=== PATIENT | male | born 1995 | race Two or more races ===

== ENCOUNTER 2016-12-03 22:31 | Emergency (ER) | payer OTHER, MEDICAID ==
[~2016-12-03] VITALS: Ht 182.9 cm; Wt 98.9 kg
[~2016-12-03 22:31] MED LIST: AMOXICILLIN500 MG ORAL; IBUPROFEN600 MG ORAL
[2016-12-03 22:52] VITALS: BP 118/73
[2016-12-03] MEDS ORDERED: IBUPROFEN600 MG ORAL (23:24)
[2016-12-03 23:38] VITALS: BP 118/69
--- NOTE | 2016-12-04 00:06 | Emergency Room Report ---
History of Present Illness General Chief Complaint: Pain Source: Patient Present Illness HPI 21-year-old male presents to ED complaining of right knee pain states that approximately 2 weeks ago he twisted his knee while at work. Feels pain when walking and twisting motions. Pain is 8/10, sharp, nonradiating. Denies any other injuries. He is able to walk without difficulty. No other aggravating relieving factors. Denies any other associated symptoms Allergies: Coded Allergies: No Known Allergies (Unverified , 05/11/15) Patient History Past Medical History: asthma Past Surgical History: none Pertinent Family History: none Social History: Denies: smoking, alcohol use, drug use Immunizations: UTD Reviewed Nursing Documentation: PMH: Agreed, PSxH: Agreed Nursing Documentation-PMH Hx Asthma: Yes Review of Systems All Other Systems: negative except mentioned in HPI Physical Exam Vital Signs Date Time Temp Pulse Resp B/P (MAP) Pulse Ox O2 Delivery O2 Flow Rate FiO2 12/03/16 22:40 98.2 89 16 118/73 98 Room Air Sp02 EP Interpretation: reviewed, normal General Appearance: no apparent distress, alert, GCS 15, non-toxic Head: normocephalic, atraumatic Eyes: bilateral eye normal inspection, bilateral eye PERRL ENT: hearing grossly normal, normal pharynx, no angioedema, normal voice Neck: full range of motion, supple/symm/no masses Respiratory: chest non-tender, lungs clear, normal breath sounds, speaking full sentences Cardiovascular #1: regular rate, rhythm, no edema Cardiovascular #2: 2+ carotid (R), 2+ carotid (L), 2+ radial (R), 2+ radial (L) , 2+ dorsalis pedis (R), 2+ dorsalis pedis (L) Gastrointestinal: normal bowel sounds, non tender, soft, non-distended, no guarding, no rebound Rectal: deferred Genitourinary: normal inspection, no CVA tenderness Musculoskeletal: back normal, gait/station normal, normal range of motion, non- tender Neurologic: alert, oriented x3, responsive, motor strength/tone normal, sensory intact, speech normal Psychiatric: judgement/insight normal, memory normal, mood/affect normal, no suicidal/homicidal ideation Reflexes: 3+ bicep (R), 3+ bicep (L), 3+ tricep (R), 3+ tricep (L), 3+ knee (R) , 3+ knee (L) Skin: normal color, no rash, warm/dry, well hydrated Lymphatic: no adenopathy Procedures Splinting Splinting : Consent: Verbal Pre-Made Type: MARIAA wrap - R knee Pre-Proc Neuro Vasc Exam: normal Post-Proc Neuro Vasc Exam: normal Patient Tolerated: Well Complications: None Medical Decision Making Diagnostic Impression: Primary Impression: Knee pain Qualified Codes: M25.561 - Pain in right knee ER Course Hospital Course 21-year-old M presents to ED complaining of R knee pain s/p twisting injury Differential diagnoses include: Fracture, dislocation, sprain, contusion Clinical course Patient placed on stretcher. After initial history and physical, I ordered pain medications and Xrays of R knee Xrays prelim read shows no acute fracture/dislocation. placed in mariaa wrap Diagnosis - knee pain Stable and discharged to home with prescription for Motrin. apply ice, keep elevated. weight bear as tolerated. Followup with PMD. Return to ED if symptoms recur or worsen Other X-Ray Diagnostic Results Other X-Ray Diagnostic Results : X-Ray ordered: R knee # of Views/Limited Vs Complete: 3 View Indication: Pain EP Interpretation: Yes Interpretation: no dislocation, no soft tissue swelling, no fractures Impression: No acute disease Electronically Signed by: Electronically signed by Homer Mosquera MD Last Vital Signs Date Time Temp Pulse Resp B/P (MAP) Pulse Ox O2 Delivery O2 Flow Rate FiO2 12/03/16 23:38 78 16 118/69 99 Room Air 12/03/16 22:52 98.2 Status: improved Disposition: HOME, SELF-CARE Condition: Stable Scripts Ibuprofen* (MOTRIN*) 600 Mg Tablet 600 MG ORAL Q8H Y for For Pain, #30 TAB 0 Refills Prov: HOMER MOSQUERA M.D. 12/03/16 Departure Forms: Return to Work Return to Work Date: Dec 04, 2016 Work Restrictions: No Heavy Lifting Patient Instructions: KNEE PAIN, Uncertain Cause HOMER MOSQUERA M.D. Dec 04, 2016 00:06
--- NOTE | 2016-12-04 09:06 | Diagnostic Imaging Report ---
Indication: PAIN Comparison: none Findings: 3 views of the right knee show no acute fractures or dislocations. Bony mineralization is normal. No bony destructive lesions are identified. There is no suprapatellar effusion. Soft tissues are unremarkable. Impression: Normal right knee series
== END 2016-12-03 23:40 | disposition home or self-care (01) ==
LOC: EMR 22:57
DX: M25.561 Pain in right knee (principal); J45.909 Unspecified asthma, uncomplicated
CPT/HCPCS: 99283

== ENCOUNTER 2017-01-18 15:21 | Emergency (ER) | payer OTHER, MEDICAID ==
[~2017-01-18] VITALS: Ht 180.3 cm; Wt 98.9 kg
[2017-01-18 15:40] VITALS: BP 137/82
[2017-01-18] MEDS ORDERED: Ketorolac 30mg Inj IV ONE (15:45)
[2017-01-18] MEDS ORDERED: Morphine Sulfate 4mg/ml Inj IVP ONE (15:45)
--- NOTE | 2017-01-18 15:59 | Emergency Room Report ---
History of Present Illness General Chief Complaint: Abdominal Pain Source: Patient Present Illness HPI 21-year-old male presents ED complaining of abdominal pain. Started approximately 2 hours prior to arrival. Started at rest. Sudden onset. Started right after eating. Right upper quadrant, 10 out of 10, nonradiating. Denies fevers or chills. Denies chest pain shortness of breath. Notes nausea, denies vomiting. Denies any prior episodes of pain. No other aggravating relieving factors. Denies any other associated symptoms Allergies: Coded Allergies: No Known Allergies (Unverified , 05/11/15) Patient History Past Medical History: asthma, GERD Past Surgical History: none Pertinent Family History: none Social History: Denies: smoking, alcohol use, drug use Reviewed Nursing Documentation: PMH: Agreed, PSxH: Agreed Nursing Documentation-PMH Hx Asthma: Yes Hx Gastrointestinal Problems: Yes - Gastritis Review of Systems All Other Systems: negative except mentioned in HPI Physical Exam Vital Signs Date Time Temp Pulse Resp B/P (MAP) Pulse Ox O2 Delivery O2 Flow Rate FiO2 01/18/17 15:24 97.7 118 18 142/80 97 Room Air Sp02 EP Interpretation: reviewed, normal General Appearance: alert, GCS 15, non-toxic, mild distress Head: normocephalic, atraumatic Eyes: bilateral eye normal inspection, bilateral eye PERRL ENT: hearing grossly normal, normal pharynx, no angioedema, normal voice Neck: full range of motion, supple/symm/no masses Respiratory: chest non-tender, lungs clear, normal breath sounds, speaking full sentences Cardiovascular #1: regular rate, rhythm, no edema Cardiovascular #2: 2+ carotid (R), 2+ carotid (L), 2+ radial (R), 2+ radial (L) , 2+ dorsalis pedis (R), 2+ dorsalis pedis (L) Gastrointestinal: normal bowel sounds, soft, non-distended, no guarding, no rebound, tenderness - RUQ Rectal: deferred Genitourinary: normal inspection, no CVA tenderness Musculoskeletal: back normal, gait/station normal, normal range of motion, non- tender Neurologic: alert, oriented x3, responsive, motor strength/tone normal, sensory intact, speech normal Psychiatric: judgement/insight normal, memory normal, mood/affect normal, no suicidal/homicidal ideation Reflexes: 3+ bicep (R), 3+ bicep (L), 3+ tricep (R), 3+ tricep (L), 3+ knee (R) , 3+ knee (L) Skin: normal color, no rash, warm/dry, well hydrated Lymphatic: no adenopathy Medical Decision Making Diagnostic Impression: Primary Impression: Abdominal pain Qualified Codes: R10.11 - Right upper quadrant pain ER Course Hospital Course 21-year-old M presents to ED with RUQ abdominal pain Differential diagnosis includes-appendicitis, cholecystitis, small bowel obstruction, gastritis, Clinical course Patient placed on stretcher. After initial history and physical I ordered labs , IV fluids, pain medications and US Labs - no leukocytosis, electrolytes ok, LFTs normal ABD US - ? echogenicty suggesting fatty liver, no other acute process CT scan shows fatty liver, mesenteric adenitis. Upon reassessment, patient states pain has improved. Given a labs, patient. Nontoxic and no acute abdomen I believe patient can be safely discharged to home. Discussed the findings and mesenteric adenitis; can be inflammatory reaction versus unspecified infection. Patient prefers to be discharged. We will prescribe antibiotics and pain medications. Patient instructed to return if symptoms do not improve or worsen Given by mouth Flagyl in ED I feel this is a highly complex case requiring extensive working including EKG/ Rhythm strip, Xray/CT/US, Blood/urine lab work, repeat exams while in ED, and administration of strong opiates/narcotics for pain control, admission to hospital or close patient follow up. Diagnosis - abdominal pain Stable and discharged to home with Rx Tramadol, Flagyl. Followup with PMD. Return to ED if symptoms recur or worsen Labs Test 01/18/17 15:45 White Blood Count 8.7 K/UL (4.8-10.8) Red Blood Count 5.15 M/UL (4.70-6.10) Hemoglobin 15.6 G/DL (14.2-18.0) Hematocrit 46.8 % (42.0-52.0) Mean Corpuscular Volume 91 FL (80-99) Mean Corpuscular Hemoglobin 30.2 PG (27.0-31.0) Mean Corpuscular Hemoglobin Concent 33.2 G/DL (32.0-36.0) Red Cell Distribution Width 10.5 % (11.6-14.8) Platelet Count 244 K/UL (150-450) Mean Platelet Volume 7.7 FL (6.5-10.1) Neutrophils (%) (Auto) 59.9 % (45.0-75.0) Lymphocytes (%) (Auto) 32.6 % (20.0-45.0) Monocytes (%) (Auto) 2.9 % (1.0-10.0) Eosinophils (%) (Auto) 3.0 % (0.0-3.0) Basophils (%) (Auto) 1.5 % (0.0-2.0) Urine Color Pale yellow Urine Appearance Clear Urine pH 8 (4.5-8.0) Urine Specific [place] 1.015 (1.005-1.035) Urine Protein Negative (NEGATIVE) Urine Glucose (UA) Negative (NEGATIVE) Urine Ketones Negative (NEGATIVE) Urine Occult Blood Negative (NEGATIVE) Urine Nitrite Negative (NEGATIVE) Urine Bilirubin Negative (NEGATIVE) Urine Urobilinogen Normal MG/DL (0.0-1.0) Urine Leukocyte Esterase Negative (NEGATIVE) Sodium Level 140 MMOL/L (136-145) Potassium Level 4.4 MMOL/L (3.5-5.1) Chloride Level 103 MMOL/L (98-107) Carbon Dioxide Level 29 MMOL/L (21-32) Anion Gap 8 mmol/L (5-15) Blood Urea Nitrogen 17 mg/dL (7-18) Creatinine 1.0 MG/DL (0.55-1.30) Estimat Glomerular Filtration Rate > 60 mL/min (>60) Glucose Level 93 MG/DL (74-106) Calcium Level 9.5 MG/DL (8.5-10.1) Total Bilirubin 0.2 MG/DL (0.2-1.0) Aspartate Amino Transf (AST/SGOT) 39 U/L (15-37) Alanine Aminotransferase (ALT/SGPT) 27 U/L (12-78) Alkaline Phosphatase 60 U/L (46-116) Total Protein 8.5 G/DL (6.4-8.2) Albumin 4.4 G/DL (3.4-5.0) Globulin 4.1 g/dL Albumin/Globulin Ratio 1.1 (1.0-2.7) Lipase 169 U/L (73-393) CT/MRI/US Diagnostic Results CT/MRI/US Diagnostic Results #1: Imaging Test Ordered: Abd US Impression hepatic echogenicity ? fatty change CT/MRI/US Diagnostic Results #2: Imaging Test Ordered: CT A/P Impression fatty liver. mesenteric adenitis. no e/o cholecystitis. no e/o appendicitis Last Vital Signs Date Time Temp Pulse Resp B/P (MAP) Pulse Ox O2 Delivery O2 Flow Rate FiO2 01/18/17 15:24 97.7 118 18 142/80 97 Room Air Status: improved Disposition: HOME, SELF-CARE Condition: Stable Scripts Metronidazole* (FLAGYL*) 500 Mg Tablet 500 MG ORAL THREE TIMES A DAY, #21 TAB Prov: SARAH ANDERSON M.D. 01/18/17 Tramadol Hcl* (ULTRAM*) 50 Mg Tablet 50 MG ORAL Q6H Y for For Pain, #30 TAB 0 Refills Prov: SARAH ANDERSON M.D. 01/18/17 SARAH ANDERSON M.D. Jan 18, 2017 15:59
[2017-01-18 16:08] LABS: APPEARANCE,URINE CLEAR; BASOPHILS % (AUTO) 1.5 % (0.0-2.0); KETONES,URINE NEGATIVE (NEGATIVE); LEUKOCYTE ESTERASE ,URINE NEGATIVE (NEGATIVE); LYMPHOCYTES % (AUTO) 32.6 % (20.0-45.0); MEAN CORPUSCULAR HEMOGLOBIN 30.2 PG (27.0-31.0); MEAN CORPUSCULAR HGB CONC 33.2 G/DL (32.0-36.0); MEAN CORPUSCULAR VOLUME 91 FL (80-99); MEAN PLATELET VOLUME 7.7 FL (6.5-10.1); MONOCYTES % (AUTO) 2.9 % (1.0-10.0); NEUTROPHILS % (AUTO) 59.9 % (45.0-75.0); NITRITE,URINE NEGATIVE (NEGATIVE); PH,URINE 8 (4.5-8.0); PLATELET COUNT 244 K/UL (150-450); PROTEIN,URINE NEGATIVE (NEGATIVE); RED BLOOD COUNT 5.15 M/UL (4.70-6.10); RED CELL DISTRIBUTION WIDTH 10.5 % (11.6-14.8); UROBILINOGEN,URINE NORMAL MG/DL (0.0-1.0); WHITE BLOOD COUNT 8.7 K/UL (4.8-10.8)
[2017-01-18 16:16] LABS: ANION GAP 8 mmol/L (5-15); CALCIUM 9.5 MG/DL (8.5-10.1); CARBON DIOXIDE 29 MMOL/L (21-32); CHLORIDE 103 MMOL/L (98-107); GLOMERULAR FILTRATION RATE > 60 mL/min (>60); POTASSIUM 4.4 MMOL/L (3.5-5.1); SODIUM 140 MMOL/L (136-145)
[2017-01-18 16:22] LABS: ALANINE AMINOTRANSFERASE 27 U/L (12-78); ALBUMIN/GLOBULIN RATIO 1.1 (1.0-2.7); ASPARTATE AMINO TRANSFERASE 39 U/L (15-37); LIPASE 169 U/L (73-393); TOTAL PROTEIN 8.5 G/DL (6.4-8.2)
--- NOTE | 2017-01-18 16:43 | Diagnostic Imaging Report ---
Indication: Right upper quadrant pain, nausea Technique: Nicole-scale and duplex images of the upper abdomen were obtained Comparison: None Findings: Gallbladder is unremarkable, without stones, wall thickening, nor pericholecystic fluid. Sonographic Jones's sign is negative. Common bile duct measures 4 mm in diameter. No intrahepatic biliary ductal dilatation. Liver is somewhat enlarged, demonstrates equivocally slightly increased echogenicity. Subtle hypoechoic area is seen in the posterior right hepatic lobe, measures 4.1 x 2.5 x 3.3 cm. Portal vein and hepatic veins are patent. Pancreas is unremarkable. Spleen is unremarkable. Left kidney measures 11.8 cm in length. Right kidney measures 11.8 cm length. Both kidneys demonstrate normal echogenicity. There is no hydronephrosis. No focal abnormality . Non-aneurysmal abdominal aorta . Impression: Equivocally slightly increased hepatic echogenicity, if real consistent with hepatocellular disease, could represent fatty change Subtle hypoechoic area in the posterior right hepatic lobe as described. Could represent area of focal sparing, but mass or inflammatory lesion not excludable. Consider further evaluation with contrast CT or MRI Negative for gallstones or dilated ducts Findings discussed by phone with Dr. Mosquera in the emergency room at the time of interpretation
[2017-01-18] MEDS ORDERED: TRAMADOL HCL50 MG ORAL (18:34)
[2017-01-18] MEDS ORDERED: METRONIDAZOLE500 MG ORAL (18:34)
[2017-01-18] MEDS ORDERED: metroNIDAZOLE 500mg tab ORAL ONE (18:45)
[2017-01-18 18:58] VITALS: BP 133/77
--- NOTE | 2017-01-19 08:42 | Diagnostic Imaging Report ---
Clinical Indication: Abdominal pain Technique: No oral contrast utilized, per emergency room physician request IV administration nonionic contrast. Venous phase spiral acquisition obtained through the abdomen and pelvis. Multiplanar reconstructions were generated. Total dose length product 979 mGycm. CTDIvol(s) 17 mGy. Dose reduction achieved using automated exposure control Comparison: Abdomen ultrasound 01/18/2017. There are no comparison CTs Findings: The appendix is normal. No evidence of diverticulosis or diverticulitis. The distal esophagus, stomach, duodenum are unremarkable. Small bowel loops are somewhat prominent and fluid-filled distally, and the distalmost ileum demonstrates small bowel feces. No free or loculated intraperitoneal air or fluid is evident. The liver is mildly enlarged and slightly hypoattenuating.. Very subtle slight hyperattenuation in the posterior right lobe probably corresponds to the hypoechoic lesion described on recent ultrasound, most likely an area of focal sparing within an otherwise fatty liver. No other focal abnormality. Gallbladder, bile ducts, pancreas spleen, adrenals, kidneys are all unremarkable. There are slightly prominent right lower quadrant mesenteric lymph nodes. No retroperitoneal mass or adenopathy. No pelvic mass or adenopathy. The included lung bases are clear. The bones are unremarkable Impression: Mild hepatic steatosis Very subtle slight hyperattenuation in the posterior right hepatic lobe, location corresponding to abnormality described on recent ultrasound, probably an area of focal sparing within the fatty liver Fluid-filled small bowel distally with some distal small bowel feces may indicate stasis of contents and therefore very mild ileus. No evidence of bowel obstruction Slightly prominent right lower quadrant lymph nodes, mesenteric lymphadenitis the possibility This agrees with the preliminary interpretation provided overnight by [facility]. The CT scanner at [facility] is accredited by the [employer] and the scans are performed using protocols designed to limit radiation exposure to as low as reasonably achievable to attain images of sufficient resolution adequate for diagnostic evaluation.
== END 2017-01-18 19:00 | disposition home or self-care (01) ==
LOC: EMR 15:55
DX: R10.11 Right upper quadrant pain (principal); J45.909 Unspecified asthma, uncomplicated; K21.9 Gastro-esophageal reflux disease without esophagitis; Z87.19 Personal history of other diseases of the digestive system
CPT/HCPCS: 36415; 74177; 76700; 80053; 81003; 83690; 85025; 96361; 96374; 96375; 99284; J1885; J2270; J2405; Q9967

== ENCOUNTER 2017-06-25 14:15 | Emergency (ER) | payer MEDICAID, OTHER ==
[~2017-06-25] VITALS: Ht 182.9 cm; Wt 99.8 kg
[~2017-06-25 14:15] MED LIST changes: +METRONIDAZOLE500 MG ORAL; +TRAMADOL HCL50 MG ORAL
[2017-06-25] MEDS ORDERED: Metoclopramide 10mg/2ml Inj IVP ONE (14:30)
[2017-06-25] MEDS ORDERED: Ketorolac 30mg Inj IV ONE (14:30)
[2017-06-25] MEDS ORDERED: DiphenhydrAMINE 50mg/ml Inj IVP ONE (14:30)
--- NOTE | 2017-06-25 14:36 | Emergency Room Report ---
History of Present Illness General Chief Complaint: General Complaint Source: Patient Present Illness HPI 21-year-old male with a history of headaches p/w BARR for one day Patient describes BARR as gradual in onset, occurred while he was at work, throbbing in nature, localized to bilateral temples, also radiating down to her shoulders and his hands, non-radiating, constant, 6 out of 10 in severity. + photophobia, phonophobia. Patient took an extra strength Tylenol without any relief Patient has a history of headaches and states this BARR feels similar to previous episodes. States that the last time he had a headache this bad was less than 6 months ago. States that he has told his doctor about his headaches in the past , but he has not seen a neurology specialist Denies fever, chills, blurry vision Allergies: Coded Allergies: No Known Allergies (Unverified , 05/11/15) Patient History Past Medical History: see triage record Past Surgical History: none Pertinent Family History: none Reviewed Nursing Documentation: PMH: Agreed; PSxH: Agreed Nursing Documentation-PMH Hx Asthma: Yes Hx Gastrointestinal Problems: Yes - Gastritis Review of Systems All Other Systems: negative except mentioned in HPI Physical Exam Vital Signs Date Time Temp Pulse Resp B/P (MAP) Pulse Ox O2 Delivery O2 Flow Rate FiO2 06/25/17 14:18 97.6 108 20 142/88 99 97.5 Sp02 EP Interpretation: reviewed, normal General Appearance: alert, GCS 15, non-toxic, mild distress Head: normocephalic, atraumatic Eyes: bilateral eye normal inspection, bilateral eye PERRL, bilateral eye EOMI ENT: normal ENT inspection, normal pharynx, normal voice, moist mucus membranes Neck: normal inspection, full range of motion, supple, no meningismus, no bony tend Respiratory: normal inspection, lungs clear, normal breath sounds, no respiratory distress, no retraction, no wheezing, speaking full sentences, chest symmetrical Cardiovascular #1: normal inspection, regular rate, rhythm, normal capillary refill Cardiovascular #2: 2+ radial (R), 2+ radial (L) Gastrointestinal: normal inspection, non tender, soft, non-distended, no guarding Musculoskeletal: back normal, normal range of motion, other - Bilateral deltoid /shoulder muscular tenderness, full range of motion all extremities Neurologic: normal inspection, alert, oriented x3, responsive, uc architect III-XII nml as tested, motor strength/tone normal, sensory intact, normal gait, speech normal Psychiatric: normal inspection, judgement/insight normal, memory normal Skin: normal inspection, normal color, no rash, warm/dry, well hydrated, normal turgor Medical Decision Making Diagnostic Impression: Primary Impression: Headache ER Course 21-year-old male p/w BARR x 1 days. DDX: Primary BARR such as migraine, tension BARR, cluster. vs. dehydration Other serious diagnoses on differential such as intracranial bleed/sah, meningitis/encephalitis, tumor, carotid dissection, however patients H&P is more consistent with benign etiology at this time. There are no neurological signs/symptoms/findings on physical exam and patient appears nontoxic and is ambulatory around the emergency room Plan: Labs, Pain control with reglan/benadryl/toradol, IVF ER course: Patient feels much better with meds. Patient continues to appear nontoxic, aox3, no neurologic symptoms. Disposition: Patient will be discharged to home. Patient instructed to follow up with primary care doctor within 5 days. Patient also instructed to follow up with a neurologist within 1 week. Strict return precautions discussed with patient such as severe/worsening headache, nausea, vomiting, fever chills, neck pain. Patient verbalized understanding. Please note that this Emergency Department Report was dictated using [employer] technology software, occasionally this can lead to erroneous entry secondary to interpretation by the dictation equipment. EKG Diagnostic Results EP Interpretation: Yes Rate: normal Rhythm: NSR ST Segments: No acute changes ASA given to patient: No Rhythm Strip EP Interpretation: Yes Rate: 70 Rhythm: NSR, no PVCs, no ectopy Laboratory Tests Test 06/25/17 14:44 White Blood Count 8.0 K/UL (4.8-10.8) Red Blood Count 5.30 M/UL (4.70-6.10) Hemoglobin 16.4 G/DL (14.2-18.0) Hematocrit 46.9 % (42.0-52.0) Mean Corpuscular Volume 88 FL (80-99) Mean Corpuscular Hemoglobin 30.9 PG (27.0-31.0) Mean Corpuscular Hemoglobin Concent 34.9 G/DL (32.0-36.0) Red Cell Distribution Width 10.4 % (11.6-14.8) L Platelet Count 354 K/UL (150-450) Mean Platelet Volume 7.0 FL (6.5-10.1) Neutrophils (%) (Auto) 67.9 % (45.0-75.0) Lymphocytes (%) (Auto) 25.5 % (20.0-45.0) Monocytes (%) (Auto) 4.3 % (1.0-10.0) Eosinophils (%) (Auto) 1.2 % (0.0-3.0) Basophils (%) (Auto) 1.0 % (0.0-2.0) Prothrombin Time 11.3 SEC (9.30-11.50) Prothrombin Time INR 1.1 (0.9-1.1) PTT 36 SEC (23-33) H Urine Color Pale yellow Urine Appearance Clear Urine pH 7 (4.5-8.0) Urine Specific [place] 1.000 (1.005-1.035) Urine Protein Negative (NEGATIVE) Urine Glucose (UA) Negative (NEGATIVE) Urine Ketones Negative (NEGATIVE) Urine Occult Blood Negative (NEGATIVE) Urine Nitrite Negative (NEGATIVE) Urine Bilirubin Negative (NEGATIVE) Urine Urobilinogen Normal MG/DL (0.0-1.0) Urine Leukocyte Esterase Negative (NEGATIVE) Sodium Level 141 MMOL/L (136-145) Potassium Level 3.7 MMOL/L (3.5-5.1) Chloride Level 102 MMOL/L (98-107) Carbon Dioxide Level 28 MMOL/L (21-32) Anion Gap 11 mmol/L (5-15) Blood Urea Nitrogen 12 mg/dL (7-18) Creatinine 0.9 MG/DL (0.55-1.30) Estimate Glomerular Filtration Rate > 60 mL/min (>60) Glucose Level 99 MG/DL (74-106) Calcium Level 10.3 MG/DL (8.5-10.1) H Total Bilirubin 0.4 MG/DL (0.2-1.0) Aspartate Amino Transferase (AST) 28 U/L (15-37) Alanine Aminotransferase (ALT) 76 U/L (12-78) Alkaline Phosphatase 72 U/L (46-116) Total Creatine Kinase 203 U/L (26-308) Troponin I 0.000 ng/mL (0.000-0.056) Total Protein 8.8 G/DL (6.4-8.2) H Albumin 4.7 G/DL (3.4-5.0) Globulin 4.1 g/dL Albumin/Globulin Ratio 1.1 (1.0-2.7) Urine Opiates Screen Negative (NEGATIVE) Urine Barbiturates Screen Negative (NEGATIVE) Phencyclidine (PCP) Screen Negative (NEGATIVE) Urine Amphetamines Screen Negative (NEGATIVE) Urine Benzodiazepines Screen Negative (NEGATIVE) Urine Cocaine Screen Negative (NEGATIVE) Urine Marijuana (THC) Screen Negative (NEGATIVE) Last Vital Signs Date Time Temp Pulse Resp B/P (MAP) Pulse Ox O2 Delivery O2 Flow Rate FiO2 06/25/17 14:18 97.6 108 20 142/88 99 97.5 Disposition: HOME, SELF-CARE Condition: Improved Sami Meadows M.D. Jun 25, 2017 14:36
[2017-06-25 14:56] LABS: EOSINOPHILS % (AUTO) 1.2 % (0.0-3.0); HEMATOCRIT 46.9 % (42.0-52.0); HEMOGLOBIN 16.4 G/DL (14.2-18.0); LYMPHOCYTES % (AUTO) 25.5 % (20.0-45.0); MEAN CORPUSCULAR VOLUME 88 FL (80-99); MONOCYTES % (AUTO) 4.3 % (1.0-10.0); NEUTROPHILS % (AUTO) 67.9 % (45.0-75.0); PLATELET COUNT 354 K/UL (150-450); RED CELL DISTRIBUTION WIDTH 10.4 % (11.6-14.8)
[2017-06-25 14:57] LABS: APPEARANCE,URINE CLEAR; BILIRUBIN, URINE NEGATIVE (NEGATIVE); COLOR,URINE PALE YELLOW; GLUCOSE, URINE (UA) NEGATIVE (NEGATIVE); KETONES,URINE NEGATIVE (NEGATIVE); LEUKOCYTE ESTERASE ,URINE NEGATIVE (NEGATIVE); NITRITE,URINE NEGATIVE (NEGATIVE); PH,URINE 7 (4.5-8.0); PROTEIN,URINE NEGATIVE (NEGATIVE); UROBILINOGEN,URINE NORMAL MG/DL (0.0-1.0)
[2017-06-25 15:08] LABS: ANION GAP 11 mmol/L (5-15); BLOOD UREA NITROGEN 12 mg/dL (7-18); CALCIUM 10.3 MG/DL (8.5-10.1); CARBON DIOXIDE 28 MMOL/L (21-32); CHLORIDE 102 MMOL/L (98-107); CREATININE 0.9 MG/DL (0.55-1.30); INR 1.1 (0.9-1.1); POTASSIUM 3.7 MMOL/L (3.5-5.1); SODIUM 141 MMOL/L (136-145)
[2017-06-25 15:13] LABS: ALANINE AMINOTRANSFERASE 76 U/L (12-78); ALBUMIN 4.7 G/DL (3.4-5.0); ALBUMIN/GLOBULIN RATIO 1.1 (1.0-2.7); ALKALINE PHOSPHATASE 72 U/L (46-116); ASPARTATE AMINO TRANSFERASE 28 U/L (15-37); BILIRUBIN,TOTAL 0.4 MG/DL (0.2-1.0); CREATINE KINASE 203 U/L (26-308)
[2017-06-25 15:25] VITALS: BP 126/46
[2017-06-25 15:39] VITALS: BP 126/46
--- NOTE | 2017-06-26 10:51 | Diagnostic Imaging Report ---
Indication: Chest pain Technique: One view of the chest Comparison: Findings: Lungs and pleural spaces are clear. Heart size is normal Impression: No acute process
== END 2017-06-25 15:40 | disposition home or self-care (01) ==
LOC: EMR 15:00
DX: R51 Headache (principal); J45.909 Unspecified asthma, uncomplicated
CPT/HCPCS: 36415; 71045; 80053; 80307; 81003; 82550; 84484; 85025; 85610; 85730; 93005; 96374; 96375; 99283; J1200; J1885; J2765

== ENCOUNTER 2018-07-11 23:26 | Emergency (ER) | payer MEDICAID, OTHER ==
[~2018-07-11] VITALS: Ht 180.3 cm; Wt 106.6 kg
[2018-07-11] MEDS ORDERED: ALBUTEROL2.5 MG/3 M INH (23:35)
--- NOTE | 2018-07-11 23:38 | NUR ---
ED Nurse Note: Patient presents with complaints of migraine x 2 days with additional complaint of photosensitivity.
--- NOTE | 2018-07-11 23:48 | NUR ---
ED Nurse Note: Patient has complaints of back and stomach pain. Patient also vomitted twice today.
[2018-07-11 23:49] VITALS: BP 150/92
--- NOTE | 2018-07-12 00:50 | NUR ---
ED Nurse Note: ERMD at bedside.
[2018-07-12 00:53] VITALS: BP 118/76
[2018-07-12] MEDS ORDERED: Metoclopramide 10mg/2ml Inj IVP ONE (01:00)
[2018-07-12] MEDS ORDERED: DiphenhydrAMINE 50mg/ml Inj IVP ONE (01:00)
[2018-07-12] MEDS ORDERED: Ketorolac 30mg Inj IV ONE (01:00)
[2018-07-12 01:08] LABS: BASOPHILS % (AUTO) 1.4 % (0.0-2.0); EOSINOPHILS % (AUTO) 5.9 % (0.0-3.0); HEMATOCRIT 41.8 % (42.0-52.0); HEMOGLOBIN 14.7 G/DL (14.2-18.0); LYMPHOCYTES % (AUTO) 36.6 % (20.0-45.0); MEAN CORPUSCULAR VOLUME 87 FL (80-99); MONOCYTES % (AUTO) 7.1 % (1.0-10.0); PLATELET COUNT 340 K/UL (150-450); RED BLOOD COUNT 4.79 M/UL (4.70-6.10); RED CELL DISTRIBUTION WIDTH 10.8 % (11.6-14.8); WHITE BLOOD COUNT 8.6 K/UL (4.8-10.8)
[2018-07-12 01:15] LABS: ANION GAP 8 mmol/L (5-15); BLOOD UREA NITROGEN 13 mg/dL (7-18); CALCIUM 9.2 MG/DL (8.5-10.1); CARBON DIOXIDE 29 MMOL/L (21-32); CHLORIDE 104 MMOL/L (98-107); POTASSIUM 3.9 MMOL/L (3.5-5.1); SODIUM 141 MMOL/L (136-145)
[2018-07-12 01:20] LABS: ALANINE AMINOTRANSFERASE 47 U/L (12-78); ALBUMIN/GLOBULIN RATIO 1.1 (1.0-2.7); ALKALINE PHOSPHATASE 63 U/L (46-116); ASPARTATE AMINO TRANSFERASE 24 U/L (15-37); BILIRUBIN,TOTAL 0.3 MG/DL (0.2-1.0)
--- NOTE | 2018-07-12 01:37 | NUR ---
ED Nurse Note: Urine sent to lab
[2018-07-12 01:42] LABS: APPEARANCE,URINE CLEAR; BILIRUBIN, URINE NEGATIVE (NEGATIVE); COLOR,URINE PALE YELLOW; GLUCOSE, URINE (UA) NEGATIVE (NEGATIVE); KETONES,URINE NEGATIVE (NEGATIVE); LEUKOCYTE ESTERASE ,URINE 1+ (NEGATIVE); NITRITE,URINE NEGATIVE (NEGATIVE); PH,URINE 8 (4.5-8.0); PROTEIN,URINE NEGATIVE (NEGATIVE); UROBILINOGEN,URINE NORMAL MG/DL (0.0-1.0)
--- NOTE | 2018-07-12 01:50 | NUR ---
ED Nurse Note: Patient is sleeping comfortably,easily arousable, reports no pain at this time.
--- NOTE | 2018-07-12 02:15 | NUR ---
ED Nurse Note: Patient headed down for CT of the head.
--- NOTE | 2018-07-12 02:34 | NUR ---
ED Nurse Note: Patient returned from CT
--- NOTE | 2018-07-12 02:45 | Emergency Room Report ---
History of Present Illness General Chief Complaint: Headache Source: Patient Present Illness HPI Patient is a 22-year-old male who presented after increased headache and nausea and vomiting. Patient gradual onset of symptoms over the past few days. He reportedly had prior history of similar type headaches in the past but not as severe. Patient denies any recent trauma. He reports having increased generalized headache. He denies any diarrhea but reports having multiple episodes of nausea and vomiting.Patient reportedly had been having some fever at home. Allergies: Coded Allergies: No Known Allergies (Unverified , 05/11/15) Patient History Reviewed Nursing Documentation: PMH: Agreed; PSxH: Agreed Nursing Documentation-PM Past Medical History: No History, Except For Hx Asthma: Yes Hx Gastrointestinal Problems: Yes - Gastritis Review of Systems All Other Systems: negative except mentioned in HPI Physical Exam Vital Signs Date Time Temp Pulse Resp B/P (MAP) Pulse Ox O2 Delivery O2 Flow Rate FiO2 07/11/18 23:31 98.8 97 15 98 Room Air 07/11/18 23:49 150/92 Sp02 EP Interpretation: reviewed, normal General Appearance: normal inspection, well appearing, no apparent distress, alert, GCS 15 Head: atraumatic ENT: normal ENT inspection, hearing grossly normal, normal voice Neck: normal inspection, full range of motion, supple, no bony tend Respiratory: normal inspection, lungs clear, normal breath sounds, no respiratory distress, no retraction, no wheezing Cardiovascular #1: regular rate, rhythm, no edema Gastrointestinal: normal inspection, normal bowel sounds, non tender, soft, no guarding, no hernia Genitourinary: no CVA tenderness Musculoskeletal: normal inspection, back normal, normal range of motion Neurologic: normal inspection, alert, oriented x3, responsive, escrow manager III-XII nml as tested, speech normal Psychiatric: normal inspection, judgement/insight normal, mood/affect normal Skin: normal inspection, normal color, no rash Medical Decision Making Diagnostic Impression: Primary Impression: Headache ER Course . Patient presented for headache. Differential diagnoses included but was not limited to skull fracture, subarachnoid hemorrhage, meningitis, aneurysm, mass lesion, intracranial hemorrhage. Because of complexity of patient's case laboratory testing and imaging studies were ordered. Patient was given medications for his headache. He was started on IV fluids. CT of the head was ordered due to patient's worsening headache. Patient's laboratory testing was unremarkable. Patient was noted to have improvement in his headache after medicating.CT head read by radiology showed no evidence of acute hemorrhage hydrocephalus or mass-effect. Sinuses were clear. Patient was given return precautions. He was advised to remain off work for 2 days. He is advised to return if he had any worsening of condition or other concerns. Labs Test 07/12/18 00:30 07/12/18 01:35 White Blood Count 8.6 K/UL (4.8-10.8) Red Blood Count 4.79 M/UL (4.70-6.10) Hemoglobin 14.7 G/DL (14.2-18.0) Hematocrit 41.8 % (42.0-52.0) Mean Corpuscular Volume 87 FL (80-99) Mean Corpuscular Hemoglobin 30.7 PG (27.0-31.0) Mean Corpuscular Hemoglobin Concent 35.1 G/DL (32.0-36.0) Red Cell Distribution Width 10.8 % (11.6-14.8) Platelet Count 340 K/UL (150-450) Mean Platelet Volume 6.9 FL (6.5-10.1) Neutrophils (%) (Auto) 49.0 % (45.0-75.0) Lymphocytes (%) (Auto) 36.6 % (20.0-45.0) Monocytes (%) (Auto) 7.1 % (1.0-10.0) Eosinophils (%) (Auto) 5.9 % (0.0-3.0) Basophils (%) (Auto) 1.4 % (0.0-2.0) Sodium Level 141 MMOL/L (136-145) Potassium Level 3.9 MMOL/L (3.5-5.1) Chloride Level 104 MMOL/L (98-107) Carbon Dioxide Level 29 MMOL/L (21-32) Anion Gap 8 mmol/L (5-15) Blood Urea Nitrogen 13 mg/dL (7-18) Creatinine 1.0 MG/DL (0.55-1.30) Estimat Glomerular Filtration Rate > 60 mL/min (>60) Glucose Level 108 MG/DL (74-106) Calcium Level 9.2 MG/DL (8.5-10.1) Total Bilirubin 0.3 MG/DL (0.2-1.0) Aspartate Amino Transf (AST/SGOT) 24 U/L (15-37) Alanine Aminotransferase (ALT/SGPT) 47 U/L (12-78) Alkaline Phosphatase 63 U/L (46-116) Troponin I 0.000 ng/mL (0.000-0.056) Total Protein 7.6 G/DL (6.4-8.2) Albumin 4.0 G/DL (3.4-5.0) Globulin 3.6 g/dL Albumin/Globulin Ratio 1.1 (1.0-2.7) Lipase 204 U/L (73-393) Urine Color Pale yellow Urine Appearance Clear Urine pH 8 (4.5-8.0) Urine Specific [place] 1.010 (1.005-1.035) Urine Protein Negative (NEGATIVE) Urine Glucose (UA) Negative (NEGATIVE) Urine Ketones Negative (NEGATIVE) Urine Blood Negative (NEGATIVE) Urine Nitrite Negative (NEGATIVE) Urine Bilirubin Negative (NEGATIVE) Urine Urobilinogen Normal MG/DL (0.0-1.0) Urine Leukocyte Esterase 1+ (NEGATIVE) Urine RBC 0-2 /HPF (0 - 0) Urine WBC 0-2 /HPF (0 - 0) Urine Squamous Epithelial Cells Occasional /LPF Urine Bacteria Occasional /HPF (NONE) Last Vital Signs Date Time Temp Pulse Resp B/P (MAP) Pulse Ox O2 Delivery O2 Flow Rate FiO2 07/12/18 01:49 97.6 07/12/18 00:53 74 15 118/76 100 Room Air Status: improved Disposition: HOME, SELF-CARE Condition: Stable Referrals: NOT CHOSEN IPA/,REFERRING (PCP) Pasha Mojica MD July 12, 2018 02:45
[2018-07-12] MEDS ORDERED: PREDNISONE20 MG ORAL (02:53)
[2018-07-12] MEDS ORDERED: REGLAN10 MG ORAL (02:53)
[2018-07-12 03:01] VITALS: BP 118/76
--- NOTE | 2018-07-12 03:08 | NUR ---
ED Nurse Note: Patient is cleared for discharge per ERMD. Patient is A&Ox4, ambulatory with steady gait, no s/s of acute distress. Patient verbalized understanding of discharge instructions. Patient ID band removed, Patient IV removed. Patient departed with all belongings accompanied by his girlfriend.
--- NOTE | 2018-07-12 09:34 | Diagnostic Imaging Report ---
Indication: Headache Technique: Contiguous 5 mm thick transaxial imaging of the head obtained in a Siemens Sensation [address] scanner. Soft tissue and bone windows generated. Automatic Exposure Control was utilized. Total Dose length Product (DLP): 1492.[address] Dose Index Volume (CTDIvol): 70.38 mGy Comparison: none Findings: The size and configuration of the cortical sulci, basal cisterns, and ventricles are within normal limits for age. There is no mass effect, midline shift, or edema identified. There is no evidence of acute hemorrhage or abnormal intra-axial or extra-axial fluid collections. The bones and soft tissues are unremarkable. Impression: No mass effect, edema or acute bleed. [facility] has communicated the preliminary results to the Emergency Department. Their findings are largely concordant with this report. The CT scanner at [facility] is accredited by the [employer] and the scans are performed using dose optimization techniques as appropriate to a performed exam including Automatic Exposure control.
== END 2018-07-12 03:01 | disposition home or self-care (01) ==
LOC: EMR 23:49
DX: R51 Headache (principal)
CPT/HCPCS: 36415; 70450; 80053; 81003; 83690; 84484; 85025; 96361; 96374; 96375; 99284; J1200; J1885; J2765